=== PATIENT | male | born 1945 | race Caucasian/White ===

== ENCOUNTER → 2017-11-06 | Outpatient (CLI) | payer MEDICARE ==
[~2017-11-06] MED LIST: APIX5TAB PO; ASPI-496 PO; CHOL100011 PO; DILT-8 PO; DOCU-131 PO; DOXY100T PO; FLUT1AER INH; IPRA3AMP30 NPPB; LOSA1TAB25 PO; METO25TA35 PO; MULT-484 PO; MULT-717 PO; OMEP40CA6 PO; PRED5TAB PO; SIMV80TA7 PO; TAMS0.4C2 PO
== END | disposition home or self-care (01) ==
LOC: CFH 10:21
PROVIDERS: ATTEND Physician Assistant Medical
DX: I65.23 Occlusion and stenosis of bilateral carotid arteries (principal); J44.9 Chronic obstructive pulmonary disease, unspecified
CPT/HCPCS: 93880

== ENCOUNTER → 2020-04-01 | Outpatient (CLI) | payer MEDICARE ==
[~2020-04-01] MED LIST changes: +OMEP40CA42 PO; -OMEP40CA6 PO; +REGADENOSON 0.4 MG/5 ML SYRINGE ONE; +SIMV80TA18 PO; -SIMV80TA7 PO
== END | disposition home or self-care (01) ==
LOC: CFH 08:11
PROVIDERS: ATTEND Nurse Practitioner Family
DX: I48.91 Unspecified atrial fibrillation (principal)
CPT/HCPCS: 78452; 93017; A9502; J2785